=== PATIENT | female | born 1970 | race African-American/Black ===

== ENCOUNTER 2017-06-30 06:53 | Day surgery (SDC) | payer OTHER ==
[~2017-06-30] VITALS: Ht 149.9 cm; Wt 53.5 kg
[2017-06-30 07:50] LABS: BILIRUBIN,URINE 1+ (NEGATIVE); BLOOD, URINE 3+ (NEGATIVE); COLOR,URINE YELLOW (YELLOW); LEUKOCYTE ESTERASE ,URINE NEGATIVE (NEGATIVE); NITRITE, URINE NEGATIVE (NEGATIVE); UGLUCOSE NEGATIVE (NEGATIVE)
[2017-06-30 08:03] LABS: APPEARANCE,URINE HAZY (CLEAR)
[2017-06-30 08:05] LABS: RBC,URINE 3-10 (FEW) /HPF (0-5); WBC,URINE 0-5 (RARE) /HPF (0-5)
[2017-06-30] MEDS ORDERED: DEXAMETHASONE 4 MG/ML VIAL ONE (11:20)
[2017-06-30] MEDS ORDERED: ONDANSETRON 4 MG/2 ML VIAL ONE (11:20)
[2017-06-30] MEDS ORDERED: PROPOFOL 200 MG/20 ML VIAL IV ONE (11:20)
[2017-06-30] MEDS ORDERED: fentaNYL 0.05 MG/ML VIAL ONE (11:45)
[2017-06-30] MEDS ORDERED: MIDAZOLAM 2 MG/2 ML VIAL ONE (11:45)
[2017-06-30] MEDS ORDERED: MEPERIDINE 50 MG/ML SYR ONE (11:46)
[2017-06-30] MEDS ORDERED: LACTATED RINGERS 1,000 ML IV SCH (12:09)
[2017-06-30] MEDS ORDERED: diphenhydrAMINE 50 MG/ML VIAL IVP PRN (12:10)
[2017-06-30] MEDS ORDERED: ONDANSETRON 4 MG/2 ML VIAL IVP PRN (12:10)
[2017-06-30] MEDS ORDERED: MEPERIDINE 25 MG/ML SYR IVP PRN (12:10)
[2017-06-30] MEDS ORDERED: HYDROmorphone 1 MG/ML AMP IVP PRN (12:10)
[2017-06-30] MEDS ORDERED: OXYTOCIN 20 UNITS in LACTATED RINGERS 1,000 ML IV SCH (12:49)
[2017-06-30] MEDS ORDERED: oxyCODONE/APAP 5/325 MG 1 TAB TAB PO PRN (12:50)
[2017-06-30] MEDS ORDERED: IBUPROFEN 600 MG TAB PO PRN (12:50)
[2017-06-30] MEDS ORDERED: methylPREDNISolone AC 80 MG/ML VIAL IM ONE (14:15)
== END 2017-06-30 14:20 | disposition home or self-care (01) ==
LOC: MDS 06:53 → MMU 06:59 → MDS 14:20
PROVIDERS: ATTEND Obstetrics & Gynecology
DX: D25.9 Leiomyoma of uterus, unspecified (principal); N95.0 Postmenopausal bleeding; I10 Essential (primary) hypertension; I50.9 Heart failure, unspecified; Z98.51 Tubal ligation status; Z98.890 Other specified postprocedural states
CPT/HCPCS: 58120; 71010; 81001; J1050; J1100; J2175; J2250; J2405; J2704; J3010; J7120; J1040